=== PATIENT | female | born 1985 | race Asian ===

== ENCOUNTER → 2025-07-16 | Outpatient (CLI) | payer MEDICAID, SELFPAY ==
--- NOTE | 2025-07-16 09:05 | XR_ITS ---
Examination: Shoulder,right, 3 views Technique: Shoulder AP internal rotation, AP external rotation, Y view shoulder, 3 views Exam date and time :July 16, 2025 0950 hours INDICATIONS: Right shoulder pain beginning one month ago. FINDINGS: No shoulder fracture or dislocation. No significant arthritic change. Negative for calcific tendinitis IMPRESSION: Negative examination
== END | disposition home or self-care (01) ==
LOC: CDIM 08:57
PROVIDERS: Referring Provider Nurse Practitioner Family; Visit Provider Nurse Practitioner Family
DX: M25.511 Pain in right shoulder (principal)
CPT/HCPCS: 73030